=== PATIENT | female | born 1995 | race Caucasian/White ===

== ENCOUNTER 2018-05-24 11:00 | Emergency (ER) | payer OTHER ==
[2018-05-24] MEDS: ONDANSETRON 4MG/2ML VIAL (J2405) IV (11:38)
[2018-05-24] MEDS: NS 1,000 ML IV (11:38)
[2018-05-24] MEDS: PANTOPRAZOLE 40MG INJ (PROTONIX) (C9113) IV (11:38)
[2018-05-24] MEDS: SUCRALFATE SUSP 1GM/10ML UD PO (11:48)
== END 2018-05-24 14:23 | disposition home or self-care (01) ==
LOC: M ED 11:00
DX: K29.20 Alcoholic gastritis without bleeding (principal); E28.2 Polycystic ovarian syndrome; F41.9 Anxiety disorder, unspecified; Z91.018 Allergy to other foods; Z88.5 Allergy status to narcotic agent
CPT/HCPCS: C9113

== ENCOUNTER 2018-06-26 12:07 | Emergency (ER) | payer OTHER ==
[2018-06-26] MEDS: ACETAMINOPHEN 325 MG TAB PO (13:46)
== END 2018-06-26 15:06 | disposition home or self-care (01) ==
LOC: M ED 12:07
DX: S06.0X0A Concussion without loss of consciousness, initial encounter (principal); W22.09XA Striking against other stationary object, initial encounter; Y92.89 Other specified places as the place of occurrence of the external cause; Y99.0 Civilian activity done for income or pay; F32.9 Major depressive disorder, single episode, unspecified; F41.9 Anxiety disorder, unspecified; E28.2 Polycystic ovarian syndrome; Z87.891 Personal history of nicotine dependence; Z88.5 Allergy status to narcotic agent; Z91.018 Allergy to other foods
CPT/HCPCS: 70450